=== PATIENT | male | born 1950 | race Caucasian/White ===

== ENCOUNTER → 2023-10-13 14:17 | Outpatient (CLI) | payer OTHER, SELFPAY ==
--- NOTE | 2023-10-13 14:21 | DI.ECHO.S_ITS ---
[facility] : : [address] : : [place] : : [id number] : : Phone: [phone] Echocardiogram Report + + :Name: YUVAL OLSON Study Date: 10/13/2023 Height: 67 in : :[facility] ReadingLocation: Weight: 200 lb : : Gender: Male BSA: 2.0 m2 : :: 1950 Age: 73 yrs BP: 136/80 mmHg: :Reason For Study: ISCHEMIC HEART DISEASE : :Ordering Physician: BRUNO, : :OH Coulter MD Performed By: Cassia Del Toro : :Referring: OH CARR MD : + + Interpretation Summary 1) Normal left ventricular thickness, size, and systolic function (EF 55-60%). 2) Basal inferior wall and basal inferolateral wall are severely hypokinetic 3) Mildly enlarged right ventricle with normal function. 4) No significant valvular abnormalities. 5) No prior Echo available for comparison. Procedure: A two-dimensional transthoracic echocardiogram with color flow and Doppler was performed. The study quality was technically adequate. There is no prior echocardiogram noted for this patient. The patient was in sinus rhythm with heart rates between 57-71 bpm during the exam. Left Ventricle: The left ventricle is normal in size and wall thickness. The ejection fraction is estimated to be 55-60%. Basal inferior wall and basal inferolateral wall are severely hypokinetic. Diastolic parameters suggest a relaxation abnormality of the left ventricle, consistent with probable normal filling pressures. Right Ventricle: The right ventricle is mildly dilated. The right ventricular systolic function is normal. Atria: The left atrium is moderately dilated. Right atrial size is normal. There is no Doppler evidence for an interatrial shunt. Mitral Valve: The mitral valve is normal in structure and function. There is trace mitral regurgitation. Aortic Valve: The aortic valve is trileaflet. The aortic valve opens well. There is no aortic valve stenosis. No aortic regurgitation is present. Tricuspid Valve: The tricuspid valve is normal in structure and function. There is trace tricuspid regurgitation. The right ventricular systolic pressure is estimated to be at least 33 mmHg based on an estimated right atrial pressure of 3 mm Hg. Pulmonic Valve: The pulmonic valve leaflets are thin and pliable; valve motion is normal. There is trace pulmonic regurgitation. Great Vessels: The aortic root is normal size. The dimensions of the ascending aorta are normal. The IVC is of normal diameter and collapses greater than 50% with a sniff. This suggests a low right atrial pressure of 3 mm Hg. Pericardium/ Pleura There is no pericardial effusion. There is no pleural effusion. MMode/2D Measurements & Calculations LVIDd: 5.4 cm LVOT diam: 2.1 cm LVIDs: 4.3 cm Ao root diam: 3.4 cm FS: 19.7 % asc Aorta Diam: 3.6 cm EPSS: 0.77 cm IVSd: 1.0 cm LVPWd: 0.99 cm LV panchal. diameter/BSA (cm/m^2): 2.7 LV sys. diameter/BSA (cm/m^2): 2.1 LA A2 area: 27.3 cm2 RA long axis: 5.4 cm LA A4 area: 28.0 cm2 RA area: 16.6 cm2 LA length (vol): 6.6 cm RA vol: 43.6 ml LA vol: 98.9 ml RA : 21.6 ml/m2 LA vol index: 48.9 ml/m2 IVC diam: 1.9 cm RVD1 (basal): 4.2 cm RVD2 (mid): 2.9 cm TAPSE: 2.0 cm Doppler Measurements & Calculations Ao V2 max: 157.5 cm/sec LVOT Max Beni: 102.1 cm/sec Ao V2 mean: 111.1 cm/sec LV V1 max P.2 mmHg Ao max P.9 mmHg LV V1 VTI: 22.2 cm Ao mean P.4 mmHg DEION(I,D): 2.2 cm2 Ao V2 VTI: 35.1 cm DEION(V,D): 2.3 cm2 sev ratio: 0.63 DEION indexed to BSA (cm^2/m^2): 1.1 MV E max beni: 91.2 cm/sec TR max beni: 275.5 cm/sec MV A max beni: 83.0 cm/sec TR max P.4 mmHg MV E/A: 1.1 PA V2 max: 92.4 cm/sec Med Peak E' Beni: 6.6 cm/sec PA V2 mean: 69.7 cm/sec E/E' med: 13.8 PA mean P.1 mmHg Lat Peak E' Beni: 10.8 cm/sec PA pr(Accel): 39.6 mmHg E/E' lat: 8.4 E/e' average: 11.1 MV dec time: 0.16 sec SV(LVOT): 78.0 ml Reading Physician:04:27 PM
== END ==
PROVIDERS: Referring Provider Family Medicine; Visit Provider Family Medicine
DX: I25.9 Chronic ischemic heart disease, unspecified (principal)
CPT/HCPCS: 93306